=== PATIENT | male | born 1960 | race Caucasian/White ===

== ENCOUNTER 2018-05-22 12:30 | Day surgery (SDC) | payer OTHER ==
[~2018-05-22 12:30] MED LIST: CEFAZOLIN 2 GM/50 ML (PMX) 50 ML IVPB; LACTATED RINGER'S 1,000 ML IV*
[2018-05-22 13:12] LABS: ADD MAN DIFF? NO
[2018-05-22 13:14] LABS: BASOPHILS % 0.5 % (0.0-2.0); EOSINOPHILS # 0.1 10^3/ul (0.0-0.5); EOSINOPHILS % 2.3 % (0.0-7.0); HEMATOCRIT 51.2 % (42.0-52.0); LYMPHOCYTES # 1.8 10^3/ul (0.8-2.9); LYMPHOCYTES % 28.3 % (15.0-51.0); MEAN CORPUSCULAR HGB CONC 33.2 g/dl (32.0-37.0); MEAN CORPUSCULAR VOLUME 87.4 fl (82.0-101.0); MEAN PLATELET VOLUME 11.4 fl (7.4-10.4); MONOCYTE # 0.5 10^3/ul (0.3-0.9); MONOCYTES % 7.4 % (0.0-11.0); NEUTROPHIL # 3.8 10^3/ul (1.6-7.5); NEUTROPHILS % 60.9 % (39.0-77.0); PLATELET COUNT 249 10^3/UL (140-415); RED BLOOD COUNT 5.86 10^6/ul (4.70-6.10); RED CELL DISTRIBUTION WIDTH 13.2 % (11.5-14.5)
[2018-05-22 13:14] LABS: WHITE BLOOD COUNT 6.2 10^3/ul (4.8-10.8)
[2018-05-22 13:30] LABS: ALANINE AMINOTRANSFERASE 22 IU/L (13-69); ALBUMIN 4.4 g/dl (3.3-4.9); ALBUMIN/GLOBULIN RATIO 1.33; ALKALINE PHOSPHATASE 61 IU/L (42-121); ANION GAP 15 (8-16); ASPARTATE AMINO TRANSFERASE 24 IU/L (15-46); BILIRUBIN,INDIRECT 1.2 mg/dl (0-1.1); BILIRUBIN,TOTAL 1.2 mg/dl (0.2-1.3); BLOOD UREA NITROGEN 20 mg/dl (7-20); CALCIUM 9.4 mg/dl (8.4-10.2); CARBON DIOXIDE 26 mmol/L (21-31); CHLORIDE 108 mmol/L (97-110); CREATININE 0.98 mg/dl (0.61-1.24); GLUCOSE 89 mg/dl (70-220); POTASSIUM 4.1 mmol/L (3.5-5.1); SODIUM 145 mmol/L (135-144); TOTAL PROTEIN 7.7 g/dl (6.1-8.1)
[2018-05-22 13:33] LABS: INR 0.93; PROTIME 12.6 Sec (11.9-14.9)
[2018-05-22 13:34] LABS: PARTIAL THROMBOPLASTIN TIME 33.2 Sec (25.0-35.0)
[2018-05-22] MEDS ORDERED: MIDAZOLAM 1 MG/ML 2 ML INJ (15:36)
[2018-05-22] MEDS: BUPIVACAINE 0.5% (SDV) 30 ML INJ (15:58)
[2018-05-22] MEDS: LIDOCAINE 1% (MPF) 30 ML INJ (15:59)
[2018-05-22] MEDS ORDERED: PROPOFOL 40 ML (16:19)
[2018-05-22] MEDS ORDERED: LIDOCAINE 2% (SDV) 5 ML INJ (16:19)
[2018-05-22] MEDS ORDERED: CEFAZOLIN 1 GM INJ (16:19)
[2018-05-22] MEDS ORDERED: ONDANSETRON 4 MG INJ (16:20)
[2018-05-22] MEDS ORDERED: FENTAnyl 50 MCG/ML VIAL IV (17:00)
[2018-05-22] MEDS ORDERED: MEPERIDINE 25 MG INJ IV (17:00)
[2018-05-22] MEDS ORDERED: DIPHENHYDRAMINE 50 MG INJ IV (17:00)
[2018-05-22] MEDS ORDERED: HYDROmorphONE 1 MG/5 ML IV SYRINGE IV ×2 (17:00)
[2018-05-22] MEDS ORDERED: ONDANSETRON 4 MG INJ IV (17:00)
== END 2018-05-22 17:55 | disposition home or self-care (01) ==
LOC: SDS 12:30
DX: M65.331 Trigger finger, right middle finger (principal); M65.841 Other synovitis and tenosynovitis, right hand; I10 Essential (primary) hypertension; E78.5 Hyperlipidemia, unspecified; E66.01 Morbid (severe) obesity due to excess calories
CPT/HCPCS: 26145; 80053; 85025; 85610; 85730; 87070; 87075; 87102; 87116